=== PATIENT | female | born 1970 | race Hispanic/Latino ===

== ENCOUNTER → 2021-12-09 | Outpatient (CLI) | payer OTHER, SELFPAY | END | disposition home or self-care (01) | LOC: RAH 09:39 | PROVIDERS: ATTEND Nurse Practitioner Adult Health | DX: N63.25 Unspecified lump in the left breast, overlapping quadrants (principal); R59.9 Enlarged lymph nodes, unspecified; N64.53 Retraction of nipple; N63.20 Unspecified lump in the left breast, unspecified quadrant; N64.4 Mastodynia; N64.59 Other signs and symptoms in breast | CPT/HCPCS: 77066 ==